=== PATIENT | female | born 1995 | race Caucasian/White ===

== ENCOUNTER 2018-09-30 23:36 | Emergency (ER) | payer SELFPAY ==
[~2018-09-30] VITALS: Ht 157.5 cm; Wt 80.6 kg
[2018-09-30 23:41] VITALS: BP 129/60; PULSE 122; RESP 19; Ht 157.5 cm; Wt 80.6 kg
== END 2018-10-01 03:10 | disposition left against medical advice (07) ==
LOC: E/R 23:36
DX: Z53.21 Procedure and treatment not carried out due to patient leaving prior to being seen by health care provider (principal)